=== PATIENT | female | born 1970 | race Caucasian/White ===

== ENCOUNTER 2017-05-27 03:27 | Emergency (ER) | payer OTHER ==
[~2017-05-27] VITALS: Ht 160 cm; Wt 65.4 kg
[2017-05-27 03:31] VITALS: TEMP 36.8; Ht 160 cm; Wt 65.4 kg
[2017-05-27] MEDS ORDERED: FAMOTIDINE IV INJ 20 MG in DEXTROSE 5% 100ML 100 ML IV STA (04:12)
[2017-05-27] MEDS ORDERED: GI COCKTAIL PO STA (04:12)
[2017-05-27] MEDS ORDERED: ESZO1TAB16 PO (04:14)
[2017-05-27] MEDS ORDERED: RIZA10TA18 PO (04:14)
[2017-05-27] MEDS ORDERED: SUMA50TA15 PO (04:14)
[2017-05-27] MEDS ORDERED: ONDANSETRON 8 MG/54 ML D5W IV ONE (04:15)
--- NOTE | 2017-05-27 04:15 | EMERGENCY ROOM VISIT NOTE ---
History Report prepared by Anselmo: Good Dominique Under the Supervision of: Dr. Meagan Velazco D.O. First contact with patient: 03:48 Chief Complaint: CHEST PAIN Stated Complaint: CHEST PAIN/LUNGS HURT,NOT ABLE TO GET FULL BREATH Nursing Triage Summary: c/o chest discomfort with movement intermittently for past three weeks that has worsened tonight. patient states she also feels discomfort move into her back. denies any cardiac hx. states sometimes she feels a burning sensation . History of Present Illness The patient is a 47 year old female who presents to the Emergency Room with complaints of intermittent, severe, chest pain beginning a few weeks ago. The patient states this is the third time she has experienced her discomfort in the past three weeks. She reports her discomfort is random, and is in the middle. The patient notes her discomfort radiates straight through to her back. She states it does not radiate to the side of her chest or her arms. The patient reports she can not sleep. She notes she used a lidocaine patch, and it seemed to help her symptoms. The patient states her current episode started about 10 hours ago, and it has been constant. She reports her pervious episodes have lasted for a few days. The patient notes she tried to walk 4 hours ago, and she could not. She reports she was dizzy, lightheaded, nauseous, and it was hard to breath. The patient notes any type of movement makes her symptoms worse. She states she drinks a solution of lemon juice, baking soda, and water everyday before bed. The patient reports she has a history of migraines. She notes she had coffee yesterday. The patient states she still has her gallbladder and a few family members from an [place]. She denies fevers, chills, coughing, cold, additional medication, recent travel, bowel movement changes, urinary symptoms, alcohol use, change in activity, swelling to the legs, consuming acidic foods other than the lemon juice, and a history of GERD. Source of History: patient Onset: a few weeks ago Position: chest (middle) Symptom Intensity: severe Timing: intermittent Modifying Factors (Worsening): movement Associated Symptoms: + SOB, + back pain, No fevers, No chills, No cough, No urinary symptoms Note: Associated symptoms; dizzy, lightheaded Denies: cold, additional medication, recent travel, bowel movement changes, alcohol use, change in activity, swelling to the legs, consuming acidic foods other than the lemon juice, and a history of GERD. Review of Systems See HPI for pertinent positives & negatives. A total of 10 systems reviewed and were otherwise negative. Past Medical & Surgical Patient denies pertinent past medical history. Family History Patient reports no known family medical history. Social History Smoking Status: Never Smoker Marital Status: Occupation Status: unemployed Current/Historical Medications Scheduled PRN Eszopiclone (Lunesta), 3 MG PO HS PRN for Sleep Rizatriptan Benzoate (Maxalt), Unknown Dose PO DIRECTED PRN for Migraine Sumatriptan Succinate (Imitrex), 50 MG PO DIRECTED PRN for Migraine Allergies Coded Allergies: No Known Allergies (Unverified , 05/27/17) Physical Exam Vital Signs Date Time Temp Pulse Resp B/P (MAP) Pulse Ox O2 Delivery O2 Flow Rate FiO2 05/27/17 06:17 74 20 124/70 98 05/27/17 05:13 61 20 116/76 98 Room Air 05/27/17 04:32 68 05/27/17 03:56 99 Room Air 05/27/17 03:31 36.8 87 18 123/77 97 Room Air Physical Exam GENERAL: alert, well appearing, well nourished, no distress, non-toxic EYE EXAM: normal conjunctiva, PERRL and EOM's grossly intact OROPHARYNX: no exudate, no erythema, lips, buccal mucosa, and tongue normal and mucous membranes are moist NECK: supple, no nuchal rigidity, no adenopathy, non-tender LUNGS: Clear to auscultation. Normal chest wall mechanics HEART: no murmurs, S1 normal and S2 normal CHEST: Lower half of the sternum and xiphoid process were mildly tender to palpation. ABDOMEN: abdomen soft, non-tender, normo-active bowel sounds, no masses, no rebound or guarding. BACK: Back is symmetrical on inspection and there is no deformity, no midline tenderness, no CVA tenderness. SKIN: no rashes and no bruising UPPER EXTREMITIES: upper extremities are grossly normal. LOWER EXTREMITIES: No pitting edema. NEURO EXAM: Normal sensorium, cranial nerves II-XII grossly intact, normal speech, no gross weakness of arms, no gross weakness of legs. Medical Decision & Procedures ER Provider Diagnostic Interpretation: XRAY: Chest: A one view study was reviewed,no cardiomegaly, no effusion, no wide mediastinum, no focal infiltrate, no pneumothorax, no pulmonary edema was seen. Laboratory Results 05/27/17 03:45 Red Blood Count 4.50, Mean Corpuscular Volume 85.8, Mean Corpuscular Hemoglobin 29.3, Mean Corpuscular Hemoglobin Concent 34.2, Mean Platelet Volume 10.8, Neutrophils (%) (Auto) 59.5, Lymphocytes (%) (Auto) 27.8, Monocytes (%) (Auto) 9.9, Eosinophils (%) (Auto) 1.8, Basophils (%) (Auto) 0.6, Neutrophils # (Auto) 4.25, Lymphocytes # (Auto) 1.99, Monocytes # (Auto) 0.71, Eosinophils # (Auto) 0.13, Basophils # (Auto) 0.04 05/27/17 03:45 Test 05/27/17 03:45 White Blood Count 7.15 K/uL (4.8-10.8) Red Blood Count 4.50 M/uL (4.2-5.4) Hemoglobin 13.2 g/dL (12.0-16.0) Hematocrit 38.6 % (37-47) Mean Corpuscular Volume 85.8 fL (80-100) Mean Corpuscular Hemoglobin 29.3 pg (25-34) Mean Corpuscular Hemoglobin Concent 34.2 g/dl (32-36) Platelet Count 258 K/uL (130-400) Mean Platelet Volume 10.8 fL (7.4-10.4) Neutrophils (%) (Auto) 59.5 % Lymphocytes (%) (Auto) 27.8 % Monocytes (%) (Auto) 9.9 % Eosinophils (%) (Auto) 1.8 % Basophils (%) (Auto) 0.6 % Neutrophils # (Auto) 4.25 K/uL (1.4-6.5) Lymphocytes # (Auto) 1.99 K/uL (1.2-3.4) Monocytes # (Auto) 0.71 K/uL (0.11-0.59) Eosinophils # (Auto) 0.13 K/uL (0-0.5) Basophils # (Auto) 0.04 K/uL (0-0.2) RDW Standard Deviation 40.7 fL (36.4-46.3) RDW Coefficient of Variation 13.1 % (11.5-14.5) Immature Granulocyte % (Auto) 0.4 % Immature Granulocyte # (Auto) 0.03 K/uL (0.00-0.02) Anion Gap 11.0 mmol/L (3-11) Est Creatinine Clear Calc Drug Dose 95.2 ml/min Estimated GFR () 120.8 Estimated GFR (Non- 104.3 BUN/Creatinine Ratio 21.2 (10-20) Calcium Level 9.2 mg/dl (8.5-10.1) Total Bilirubin 0.3 mg/dl (0.2-1) Aspartate Amino Transf (AST/SGOT) 31 U/L (15-37) Alanine Aminotransferase (ALT/SGPT) 40 U/L (12-78) Alkaline Phosphatase 79 U/L (45-117) Troponin I < 0.015 ng/ml (0-0.045) Total Protein 8.0 gm/dl (6.4-8.2) Albumin 3.9 gm/dl (3.4-5.0) Globulin 4.1 gm/dl (2.5-4.0) Albumin/Globulin Ratio 1.0 (0.9-2) Lipase 187 U/L (73-393) Thyroid Stimulating Hormone (TSH) 4.260 uIu/ml (0.300-4.500) Laboratory results per my review. Medications Administered Medications (Trade) Dose Ordered Sig/Barbara Route Start Time Stop Time Status Last Admin Dose Admin Famotidine 20 mg/ Dextrose 102 ml @ 200 mls/hr NOW STAT IV 05/27/17 04:12 05/27/17 04:42 DC 05/27/17 04:50 200 MLS/HR Ondansetron HCl (Zofran 8mg Iv) 8 mg NOW ONCE IV 05/27/17 04:15 05/27/17 04:16 DC 05/27/17 04:29 8 MG Miscellaneous Medication (Gi Cocktail) 24 ml NOW STAT PO 05/27/17 04:12 05/27/17 04:15 DC 05/27/17 04:12 24 ML Ketorolac Tromethamine (Toradol Inj) 30 mg NOW STAT IV 05/27/17 05:12 05/27/17 05:13 DC 05/27/17 05:17 30 MG ECG Indication: chest pain Rate (beats per minute): 67 Rhythm: normal sinus Findings: no acute ischemic change, no ectopy ED Course 0359: The patient was evaluated in room B09. A complete history and physical exam was performed. 0412: Ordered GI cocktail 24ml PI, Famotidine 20mg/Dextrose 102 ml @ 200 mls/hr IV 0415: Ordered Ondansetron HCl 8mg IV 0501: I reevaluated the patient and discussed current exam findings. She is still having discomfort. 0512: Ordered Toradol 30mg IV 0609: Upon reevaluation, the patient is feeling better. I discussed the findings and the treatment plan with the patient. She verbalizes agreement and understanding. The patient was discharged home. Medical Decision Differential diagnoses includes but is not limited to acute coronary syndrome, myocardial infarction, pericarditis, pulmonary embolus, aortic dissection, pneumonia, pneumothorax, musculoskeletal, shingles, esophageal. HEART score 0 Patient without any risk factors for coronary artery disease, low well score and can be ruled out using PERC criteria regarding PE. Doubt tamponade, effusion, pneumothorax, no evidence of infiltrate on chest x-ray, doubt dissection or aneurysm. No initial change following GI medications, however markedly improved following administration of Toradol. Discussed with patient need for follow-up, symptoms to watch and return for, possible differential diagnosis, she verbalized understanding was agreeable with plan. Patient requested copies of her labs to follow up with her family doctor. Patient's vital signs stable throughout, no history of hypertension, doubt hypertensive urgency/emergency. Medication Reconcilliation Current Medication List: was personally reviewed by me Blood Pressure Screening Patient's blood pressure: Normal blood pressure Impression Primary Impression: Chest pain Scribe Attestation The scribe's documentation has been prepared under my direction and personally reviewed by me in its entirety. I confirm that the note above accurately reflects all work, treatment, procedures, and medical decision making performed by me. Departure Information Dispostion Home / Self-Care Referrals Cameron Rivera M.D. (PCP) Forms Call Back Authorization, HOME CARE DOCUMENTATION FORM, IMPORTANT VISIT INFORMATION Patient Instructions [facility] Additional Instructions Please rest and avoid any strenuous activity or heavy lifting. If you have any recurrent pain, develop trouble breathing, dizziness, vomiting, notice blood in your sputum, develop black or tarry stools, fevers, or you have any other new or concerning symptoms, please return to the emergency room. Problem Qualifiers Primary Impression: Chest pain Chest pain type: unspecified Qualified Codes: R07.9 - Chest pain, unspecified
[2017-05-27 04:21] LABS: BASO % 0.6 %; BASO ABS # 0.04 K/uL (0-0.2); COMPLETE YES; EOS % 1.8 %; HEMATOCRIT 38.6 % (37-47); IG% 0.4 %; LYMPH % 27.8 %; LYMPH ABS # 1.99 K/uL (1.2-3.4); MEAN CELL VOLUME 85.8 fL (80-100); MEAN CORPUSCULAR HEMOGLOBIN 29.3 pg (25-34); MEAN CORPUSCULAR HGB CONC 34.2 g/dl (32-36); MEAN PLATELET VOLUME 10.8 fL (7.4-10.4); MONO % 9.9 %; NEUT % 59.5 %; PLATELET COUNT 258 K/uL (130-400); WHITE BLOOD COUNT 7.15 K/uL (4.8-10.8)
[2017-05-27] MEDS ORDERED: LIDOCAINE HCL 2% VISC SOLN 20 ML UDC ONE (04:21)
[2017-05-27] MEDS ORDERED: ALUMINUM/MAGNESIUM SUSP 30 ML UDC ONE (04:21)
[2017-05-27 04:29] LABS: ALT/SGPT 40 U/L (12-78); AST/SGOT 31 U/L (15-37); BLOOD UREA NITROGEN 14 mg/dl (7-18); BUN/CREATININE RATIO 21.2 (10-20); CALCIUM 9.2 mg/dl (8.5-10.1); CARBON DIOXIDE 21 mmol/L (21-32); CHLORIDE 108 mmol/L (98-107); CREATININE 0.65 mg/dl (0.60-1.20); GLUCOSE 99 mg/dl (70-99); POTASSIUM 3.7 mmol/L (3.5-5.1); SODIUM 140 mmol/L (136-145)
[2017-05-27 04:40] LABS: ALKALINE PHOSPHATASE 79 U/L (45-117)
[2017-05-27] MEDS ORDERED: KETOROLAC TROMETHAMINE 30 MG/ML VIAL IV STA (05:12)
[2017-05-27 06:17] VITALS: BP 124/70; PULSE 74; O2SAT 98
--- NOTE | 2017-05-27 07:15 | DIAGNOSTIC IMAGING REPORT ---
CHEST ONE VIEW PORTABLE CLINICAL HISTORY: 47 years-old Female presenting with chest pain. TECHNIQUE: Portable upright AP view of the chest was obtained. COMPARISON: None. FINDINGS: Cardiomediastinal silhouette normal. Lungs and pleural spaces clear. Osseous structures normal. Upper abdomen normal. IMPRESSION: 1. No acute cardiopulmonary disease. Electronically signed by: Sin Manley M.D. 05/27/2017 7:13 AM Dictated Date/Time: 05/27/2017 7:13 AM
== END 2017-05-27 06:24 | disposition home or self-care (01) ==
LOC: C.EDB 03:29
DX: R07.9 Chest pain, unspecified (principal)